=== PATIENT | female | born 1955 | race Caucasian/White ===

== ENCOUNTER 2024-08-08 10:48 | Inpatient (IN) | payer MEDICARE, OTHER, SELFPAY ==
[2024-08-08] VITALS (8 sets, daily range): BP systolic 125–166; BP diastolic 89–107; PULSE 75–86; RESP 17–20; TEMP 36.6–37.1; O2SAT 93–96; BMI 25.6; BMI 27.3
--- NOTE | 2024-08-08 | XR_ITS ---
Examinations: MRI Brain without intravenous contrast. MRA brain without intravenous contrast. MRA carotids without intravenous contrast 3-D vascular reconstructions Date and time of exam: August 08, 2024 1456 hours INDICATIONS: Stroke alert, onset dysarthria dizziness and ataxia today Technique: Multiple axial and sagittal images of the brain have been obtained MRA brain carotid images without contrast obtained, including 3-D postprocessing, vascular maximum intensity projection images Findings: [place] is not enlarged. The optic chiasm and infundibular stalk are not remarkable. Prepontine and interpeduncular cisterns are not enlarged. No localized enlargement of the medulla or melissa. Fourth ventricle and cerebellar tonsils normal in position. Subacute hemorrhage is not seen. Fourth ventricle is midline. Mass in the cerebellopontine angle region is not evident. 7th and 8th nerve complexes exhibits symmetry. Globes are symmetrical with no retro-orbital mass. Increased white matter signal mild Diffusion-weighted images demonstrate no focus of restricted diffusion Mass-effect upon the ventricular system is not identified. MRA carotid images degraded by patient motion. MRA brain images no large vessel occlusions Impression: Negative for acute hemorrhage mass effect or midline shift No acute infarct Mild chronic microvascular white matter change No cerebral large vessel arterial occlusions
--- NOTE | 2024-08-08 11:21 | EKG_ITS ---
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
--- NOTE | 2024-08-08 11:21 | XR_ITS ---
Examination: CT brain head without contrast. 2-D sagittal coronal reconstructions Date and time of exam:August 08, 2024 1124 hours INDICATIONS: Altered mental status today, focal neurologic deficit, slurred speech beginning 8:30 AM, stroke alert CTDI: vol (mGy):47.9 DLP: (mGycm):922 Technique: Multiple CT axial sections of the brain have been obtained, 5 mm slice thickness. Contrast has not been administered. 2-D sagittal, coronal reconstructions have been obtained Low dose protocols were performed. One or more of the following dose reduction techniques were used; automated exposure control, adjustment of the mA and/or KV according to patient size, use of iterative reconstruction technique. Findings: No significant ventricular enlargement. Intra-axial or extra-axial hemorrhage density is not seen. No mass effect or midline shift Basal cisterns are not remarkable. Fourth ventricle is midline. Cranial vault intact. Impression: Negative for acute hemorrhage, mass effect or midline shift
--- NOTE | 2024-08-08 11:21 | XR_ITS ---
Examination: CTA carotids with intravenous contrast CTA brain, head with intravenous contrast. 2-D sagittal, coronal reconstructions. 3-D reconstructions. Exam date and time: August 08, 2024 1134 hours INDICATIONS: Stroke alert, onset slurred speech beginning 8:30 AM this morning CTDI: vol (mGy) 20.7 DLP: (mGycm) 412 Technique: Multiple CTA axial brain, head carotid images post intravenous contrast injection 75 cc, Isovue-370. 2-D sagittal, coronal reconstructions. 3-D reconstructions, 3-D post processing including vascular maximum intensity projection images. Low dose protocols were performed. One or more of the following dose reduction techniques were used; automated exposure control, adjustment of the mA and/or KV according to patient size, use of iterative reconstruction technique. Findings: No significant common carotid carotid bifurcation or internal carotid artery stenoses Mildly dominant right vertebral artery no neck vertebral artery significant stenoses No cerebral large vessel arterial occlusions or thrombus IMPRESSION: No significant neck arterial stenoses No cerebral large vessel arterial occlusions or thrombus
[2024-08-08 11:50] LABS: Basophils # (Auto) 0.1 Thou/mm3 (0.0-0.2); Basophils % (Auto) 1 % (0-2.5); Eosinophils # (Auto) 0.2 Thou/mm3 (0.0-0.5); Eosinophils % (Auto) 2 % (0-10); Hemoglobin 14.7 g/dL (12.0-16.0); Immature Granulocytes % (Auto) 1 % (0-0); Immature Granulocytes Auto 0.12 Thou/mm3 (0.00-0.00); Lymphocytes # (Auto) 3.3 Thou/mm3 (1.0-4.8); Lymphocytes % (Auto) 27 % (10-50); Mean Corpuscular HGB Conc 33.4 g/dl (31.0-37.0); Mean Corpuscular Hemoglobin 29.9 pg (25.0-35.0); Mean Corpuscular Volume 90 fL (80-100); Monocytes # (Auto) 0.9 Thou/mm3 (0.0-0.8); Monocytes % (Auto) 8 % (0-12); Neutrophils # (Auto) 7.3 Thou/mm3 (1.8-7.7); Neutrophils % (Auto) 61 % (37-80); Nucleated Red Blood Cell % 0 /100 WBC (0); Platelet Count 725 Thou/mm3 (140-440); RDW Standard Deviation 46.4 fL (36.4-46.3); Red Blood Count 4.91 Miln/mm3 (4.00-5.20); White Blood Count 12.1 Thou/mm3 (3.6-11.0)
[2024-08-08 11:52] LABS: B-Type Natriuretic Peptide 24 pg/mL (0-100)
--- NOTE | 2024-08-08 11:55 | EDNOTE_ITS ---
Neuro Symptoms Deficit-RME/HPI General Chief Complaint: Dizziness Stated Complaint: Dizzy, slurred speech X 2 hours Time Seen by Provider: 08/08/24 11:14 Arrival date/time: 08/08/24 10:48 RME / HPI RME / HPI Narrative: DR. DENNEY MAIN ED EVALUATION: 68 year old female presents to the Emergency Department with complaints of dysarthria and dizziness onset at 0830 hrs. this morning and the speech disturbance resolved within 30-40 minutes and the family noted the blood pressure to be elevated with the patient was also somewhat anxious. Patient arrived to emergency department and a stroke alert was called. See MDM for further details. Notes the neurological symptoms had resolved soon after stroke alert was called. Daughter who is in the room states that she was acting little strange maybe for 3 hours after the onset of symptoms. Daughter seems to feel there is some association with stress or activity as the patient is moving to the area but was in the process of selecting a home. There is no fever vomiting diarrhea there is no injury or trauma. She is not any blood thinners. Related Data Allergies Allergy/AdvReac Type Severity Reaction Status Date / Time NKA* Allergy Uncoded 08/08/24 10:57 Review of Systems Review of Systems Systems Reviewed: All systems reviewed, normal except as documented Narrative Review of Systems: GEN: No fever, no chills, no weight loss EYES: No discharge, no visual changes, no pain HEENT: No ear pain, no congestion, no sore throat PULM: No shortness of breath, no cough, no congestion CV: No chest pain, no dyspnea on exertion, no palpitations GI: No nausea, no vomiting, no diarrhea, no pain, no constipation : No frequency, no urgency and no dysuria MUSC/SKEL: No joint pain, no back pain SKIN: No rash PSYCH: No hallucinations, no depression HEME/LYMPH: No easy bleeding or bruising tendencies NEURO: No weakness, no headache, + dysarthria (see HPI), + dizziness Past Medical History Past Medical History GENITOURINARY: Positive Renal Disease (L KIDNEY REMOVED) Family History FAMILY HISTORY: Positive Family Cancer (PT'S DAD PROSTATE CANCER) Surgical History SURGICAL: Positive of Shoulder Sx (R SHOULDER) and Hysterectomy (FULL) Social History SMOKING STATUS: Former smoker SUBSTANCE USE: does not use ALCOHOL: Never ED Exam Narrative Physical exam: Physical Exam: General: The vital signs were reviewed. The patient is non-toxic, in no apparent distress and appears healthy with a patent airway, no respiratory distress and has no apparent circulatory problems. Head & Scalp: Normocephalic, atraumatic. Face: Appears normal and is without lesions, deformity. Ears: Left external pinna appears normal. Right external pinna appears normal. Eyes: The sclera is anicteric. No obvious photophobia. The Left and Right Orbit/Lid/Conjunctiva appears normal without swelling, discoloration or injection. Nose: The nose is without deformity, discharge or tenderness; Throat: Appears normal. The mucous membranes are pink and moist without exudates, redness or mass seen. The tongue appears normal. Neck: The neck is supple and no apparent mass or adenopathy. Chest: The chest wall is normal in size and symmetry and has no chest wall tenderness or crepitus. The patient displays normal ventilator effort without retractions, accessory muscle use and has adequate air movement bilaterally with no wheezes and no rales. Cardiovascular: Regular rate and rhythm; No murmurs, rubs, or gallops; Gastrointestinal: The abdomen appears normal. No obvious hernias or mass. The abdomen is soft and benign, non-distended, with no pain, no guarding and no rebound tenderness. Bowel sounds are present and normal sounding. No CVA tenderness. Genitourinary: Back/Spine: Nontender normal inspection Extremities/Musculoskeletal/lymphatic: The bilateral upper and lower extremities are warm. There is no evidence of arterial insufficiency. There is no evidence of venous insufficiency/edema. The patient spontaneously moves bilateral upper and lower extremities with no pain and no limitation of movement. There is no apparent, injury or trauma. Skin: The skin is warm, dry and intact. No rashes. No petechia. No purpura. No abnormal bruising. The color is appropriate with no cyanosis. Mental status/Psychiatric: Mental status is appropriate for age. The patient has no apparent delusions, visual hallucinations, no apparent audible hallucinations. The patient has no apparent suicidal thoughts/ideation and no apparent homicidal thoughts/ideation. Neurological: The patient is awake, alert, interactive, cordial, cooperative and is oriented to name and situation. Cranial nerves II through XII are within normal limits there is no dysdiadochokinesis. There is no dysmetria. She stands gets off the gurney without any difficulty. Speech is perfectly clear at the time of my evaluation. The patient follows commands and answers historical question with no i mpairment. There is no visual disturbance apparent. The pupils are equal and reactive bilaterally with normal eye movements and no diplopia The bilateral upper and lower extremities have normal strength, normal range of motion and normal functioning. The gait, station and balance appear to be baseline with no acute change Course Quality Measures none Orders Category Date Time Status Bedside Blood Glucose NOW Care 08/08/24 11:21 Active Nail Professional NOW Care 08/08/24 11:21 Active Continuous Pulse Oximetry NOW Care 08/08/24 11:21 Completed EKG (ED ONLY) *Do not use* NOW Care 08/08/24 11:21 Completed Insert IV NOW Care 08/08/24 11:21 Active MRI Screening NOW Care 08/08/24 13:29 Active NIH Stroke Scale now Care 08/08/24 11:21 Active NPO NOW Care 08/08/24 11:21 Active Nurse Swallow Screen x1 Care 08/08/24 11:21 Active Consult to Neurology / Tele-Neurology Routine Cons 08/08/24 11:[address] angio stroke protocol Stat Exams 08/08/24 11:[address] stroke protocol Stat Exams 08/08/24 11:21 Completed EKG (ED Only) Stat Exams 08/08/24 11:21 Ordered B-Type Natriuretic Peptide Stat Lab 08/08/24 11:21 Completed CBC Stat Lab 08/08/24 11:21 Completed Comprehensive Metabolic Panel Stat Lab 08/08/24 11:21 Completed Drug Screen,Urine Stat Lab 08/08/24 11:59 Completed Magnesium Stat Lab 08/08/24 11:21 Completed Partial Thromboplastin Time Stat Lab 08/08/24 11:21 Completed Prothrombin Time with INR Stat Lab 08/08/24 11:21 Completed Troponin I Stat Lab 08/08/24 11:21 Completed UA, C/S IF [Urinalysis, C/S if Indicated] Stat Lab 08/08/24 11:59 Completed Aspirin [Ecotrin] Med 08/08/24 13:29 Discontinued 81 mg PO X1 ONE Clopidogrel [Plavix] Med 08/08/24 13:29 Discontinued 300 mg PO X1 ONE Ondansetron Inj [Zofran Inj] Med 08/08/24 11:21 Active 4 mg IV Q4HR PRN Vital Signs Vital signs: Vital Signs Temperature 98.8 F 08/08/24 11:15 Pulse Rate 77 08/08/24 11:15 Respiratory Rate 19 08/08/24 11:15 Blood Pressure 162/97 H 08/08/24 11:15 Pulse Oximetry (%) 95 08/08/24 11:15 Oxygen Delivery Method Room Air 08/08/24 11:15 Neuro Symptoms / Deficit MDM Narrative MDM Narrative:: Patient had a stroke alert called due to acute onset of speech disturbance which resolved within 45 minutes of onset. And most likely is a TIA. Teleneurologist saw the patient reviewed the scan and called and recommended started the patient on Plavix 300 mg and aspirin 81 mg. Also an MRI will be ordered after consulting with Dr. Watters who will be consulting and hospitalist was called and they will be admitting as of 1320 hrs. per medical workup otherwise is negative drug screen came back negative urinalysis is unremarkable. Chemistries are unremarkable troponin is negative liver enzymes are negative glucose was 122 BUN was 26 slightly above the normal range. Creatinine is 1.0 rest electrolytes are normal PT/INR within normal limits CBC white count is 12.1 hemoglobin is 14.7 Because a stroke alert was called there will be a critical care note. Fortunately she is doing well be admitted for workup of TIAs. Discussion with the teleneurologist earlier revealed this patient's not a tPA candidate as the symptoms have nearly resolved. Most likely a TIA as mentioned above I consulted Dr. Watters she and then the hospitalist will be admitting. Plan was to start the patient on aspirin and Plavix. Note the CTA c srinath back negative. On reevaluation multiple times patient was alert awake feeling good was able to stand and walk and be admitted for TIA workup. -------- Shara Desai, am scribing for and in the presence of Dr. Denney. Patient data External records reviewed:: None (no previous visits) Clinical information provided by:: patient and family (daughter) Social determinants that could affect healthcare access:: none Patient has the following chronic illnesses:: Renal disease, left nephrectomy How is presenting disease/condition affected by chronic disease/condition?: uneffected by Evaluation data The following diagnostics were reviewed and interpreted by me:: lab results, radiology exam(s) and EKG tracing(s) (EKG#1: EKG at 1148 hours. Interpreted by me: sinus rhythm, rate 75, no STEMI) Lab and/or radiology exams considered but not ordered:: none Interpretation Summary: See above under MDM narrative. RADIOLOGY Procedure(s): CT stroke protocol Accession Number(s): [id number] cc: Niurka (MARIBEL),Alexandr LÓPEZ; Israel Orozco MD~ Examination: CT brain head without contrast. 2-D sagittal coronal reconstructions Date and time of exam:August 08, 2024 1124 hours INDICATIONS: Altered mental status today, focal neurologic deficit, slurred speech beginning 8:30 AM, stroke alert CTDI: vol (mGy):47.9 DLP: (mGycm):922 Technique: Multiple CT axial sections of the brain have been obtained, 5 mm slice thickness. Contrast has not been administered. 2-D sagittal, coronal reconstructions have been obtained Low dose protocols were performed. One or more of the following dose reduction techniques were used; automated exposure control, adjustment of the mA and/or KV according to patient size, use of iterative reconstruction technique. Findings: No significant ventricular enlargement. Intra-axial or extra-axial hemorrhage density is not seen. No mass effect or midline shift Basal cisterns are not remarkable. Fourth ventricle is midline. Cranial vault intact. Impression: Negative for acute hemorrhage, mass effect or midline shift Dictated By: Israel Orozco MD Procedure(s): CT angio stroke protocol Accession Number(s): [id number] cc: Niurka (MARIBEL),Alexandr LÓPEZ; Israel Orozco MD; NO PRIMARY/FAMILY,PHYSICIAN~ Examination: CTA carotids with intravenous contrast CTA brain, head with intravenous contrast. 2-D sagittal, coronal reconstructions. 3-D reconstructions. Exam date and time: August 08, 2024 1134 hours INDICATIONS: Stroke alert, onset slurred speech beginning 8:30 AM this morning CTDI: vol (mGy) 20.7 DLP: (mGycm) 412 Technique: Multiple CTA axial brain, head carotid images post intravenous contrast injection 75 cc, Isovue-370. 2-D sagittal, coronal reconstructions. 3-D reconstructions, 3-D post processing including vascular maximum intensity projection images. Low dose protocols were performed. One or more of the following dose reduction techniques were used; automated exposure control, adjustment of the mA and/or KV according to patient size, use of iterative reconstruction technique. Findings: No significant common carotid carotid bifurcation or internal carotid artery stenoses Mildly dominant right vertebral artery no neck vertebral artery significant stenoses No cerebral large vessel arterial occlusions or thrombus IMPRESSION: No significant neck arterial stenoses No cerebral large vessel arterial occlusions or thrombus Dictated By: Israel Orozco MD Medications / Prescriptions Medications or Prescriptions considered but not ordered:: none Medication administrations:: Medication Administration History Acetaminophen (Acetaminophen 325 Mg Tablet) 650 mg PO Q6H PRN PRN Reason: Fever >100.4 OR PAIN 1-3 Stop: 09/07/24 13:56 Aspirin (Aspirin Ec 81 Mg Tabec) 81 mg PO QDAY [facility] Stop: 09/08/24 08:59 Atorvastatin Calcium (Atorvastatin Calcium 20 Mg Tablet) 40 mg PO HS [facility] Stop: 09/07/24 20:59 Escitalopram Oxalate (Escitalopram Oxalate 10 Mg Tablet) 5 mg PO QDAY [facility] Stop: 09/08/24 08:59 Heparin Sodium (Porcine) (Heparin Sod Inj 5000 Unit/Ml Vial) 5,000 unit SC Q12HR [facility] Stop: 08/22/24 20:59 Ondansetron HCl (Ondansetron Inj 2 Mg/Ml Inj 2 Ml) 4 mg IV Q4HR PRN PRN Reason: NAUSEA OR VOMITING Stop: 09/07/24 11:20 Discontinued Medications Aspirin (Aspirin Ec 81 Mg Tabec) 81 mg PO X1 ONE Stop: 08/08/24 13:30 Last Admin: 08/08/24 13:52 Dose: 81 mg Documented By: GM Clopidogrel Bisulfate (Clopidogrel Bisulfate 75 Mg Tablet) 300 mg PO X1 ONE Stop: 08/08/24 13:30 Last Admin: 08/08/24 13:52 Dose: 300 mg Documented By: GM Lorazepam (Lorazepam 2 Mg/Ml Vial) 2 mg IV X1 ONE Stop: 08/08/24 14:08 Last Admin: 08/08/24 14:37 Dose: 2 mg Documented By: GM see above Consultations Consultation(s) initiated? (list below): Yes Consultation #1 (Physician, Specialty, Details): Discussed test HPI, PMHx, lab, radiology results and/or management with neurologist Dr. Watters. Will consult an admission to the hospitalist. Time: 13:25 Consultation #2 (Physician, Specialty, Details): Discussed test HPI, PMHx, lab, radiology results and/or management with hospitalist. Will admit for further evaluation and management. Accepts patient for admission. Time: 13:30 Diagnosis Neuro Differential Diagnosis: delirium, subarachnoid hemorrhage, cerebrovascular accident and transient cerebral ischemia Most likely diagnosis given after review of the tests above:: Dysarthria TIA Hypertension Admission Indicated Admission indicated?: indicated Admission Request Was there a request for admission?: Yes Admission Attestation Admission request attestation: Discussed case with [] from Hospitalist service regarding admission. Discussed patients ED course, exam findings, labs, and radiology results. The Hospitalist [agrees,declines] to accept the patient for admission. Disposition Plan Disposition Plan: Admit Critical Care Time Critical Care Time Critical Care Time: Yes Total Critical Care Time (min.): 40 Attestation: The high probability of sudden, clinically significant deterioration in the patient's condition required the highest level of my preparedness to intervene urgently. The services I provided to this patient were to treat and/or prevent clinically significant deterioration. Services included the following: chart data review, reviewing nursing notes and/or old charts, documentation time, quantitative consultant collaboration regarding findings and treatment options, medication orders and management, direct patient care, vital sign assessments and ordering, interpreting and reviewing diagnostic studies and lab tests. Aggregate critical care time includes only time during which I was engaged in work directly related to the patient's care, as described above, whether at bedside or elsewhere in the Emergency Department. It did not include time spent performing other reported procedures or the services of residents, students, nurses or physician assistants. Discharge Plan Plan Patient Disposition: Admit Acute Care w/in Hospital Disposition Comment: Hospitalist admit Dr Watters to consult Problem List Clinical Impression: Dysarthria, TIA (transient ischemic attack), Hypertension
[2024-08-08 11:56] LABS: Alanine Aminotransferase 24 U/L (10-49); Albumin, Serum 4.6 gm/dL (3.4-4.8); Albumin/Globulin Ratio 1.6 (1.2-2.2); Alkaline Phosphatase 87 U/L (46-116); Anion Gap 7 (7-16); Aspartate Amino Transferase 31 U/L (0-34); BUN/Creatinine Ratio 26 Ratio (12-20); Bilirubin,Total 0.3 mg/dL (0.3-1.2); Blood Urea Nitrogen 26 mg/dL (9-23); Calcium 9.9 mg/dL (8.3-10.6); Calcium (Corrected) 9.9 mg/dL (8.5-10.1); Chloride 104 mMol/L (98-107); Estimated Creatinine Clearance 47.1 mL/min (>60); Globulin 2.8 gm/dL (2.3-3.5); Glucose 122 mg/dL (74-106); Magnesium 2.2 mg/dL (1.6-2.6); Osmolality,Calculated 277 (275-295); Potassium 4.6 mMol/L (3.4-5.1); Sodium 136 mMol/L (136-145); Total Protein 7.4 gm/dL (5.7-8.2); Troponin I < 0.002 ng/mL (0.0-0.045); eGFR > 60 See Note
[2024-08-08 12:01] LABS: INR 1.1 (0.9-1.3); Partial Thromboplastin Time 30.1 Seconds (22.0-36.0); Prothrombin Time 11.6 Seconds (9.0-12.2)
[2024-08-08 12:04] LABS: Collection Type, Urine Clean Catch; Squamous Epithelial Cell,Urine 0 /hpf (0-5)
--- NOTE | 2024-08-08 12:04 | PD.TNEURO ---
Tele Neuro Consultation Consultation Date 08/08/24 Most Recent Vital Signs Last Vital Signs Temp 98.0 F 08/08/24 11:18 Pulse 75 08/08/24 11:18 Resp 18 08/08/24 11:18 BP 162/97 H 08/08/24 11:18 Pulse Ox 95 08/08/24 11:18 O2 Del Method Room Air 08/08/24 11:18 Laboratory-Coagulation Panel PT 11.6 Seconds (9.0-12.2) 08/08/24 11:21 INR 1.1 (0.9-1.3) 08/08/24 11:21 APTT 30.1 Seconds (22.0-36.0) 08/08/24 11:21 Consultation Narrative [facility] Tele[facility]rology [facility] Patient Name:???era stoddard Date of :???1955 Identification Number:??? Date of Service:???08/08/2024 11:21:10 Diagnosis:?G45.9 - Transient cerebral ischemic attack, unspecified Impression: ?Mrs. Britt had signs and symptoms of TIA with dysarthria and dizziness. she has vascular risk factors of HTN and hyperglycemia and former smoker. I recommend dual antiplatelets (aspirin 81mg and plavix load 300mg), MRI brain, CTA neck, LDL goal <70 with atorvastatin 40mg, A1C goal <7, cardiac monitoring for AF evaluation. Since she had a recent UTI, I recommend repeat UA. Our recommendations are outlined below. Recommendations: ? Stroke/Telemetry Floor ? Neuro Checks ? Bedside Swallow Eval ? DVT Prophylaxis ? IV Fluids, Normal Saline ? Head of Bed 30 Degrees ? Euglycemia and Avoid Hyperthermia (PRN Acetaminophen) Sign Out: ? Discussed with Emergency Department Provider Advanced Imaging: Advanced imaging has been ordered. Results pending. Metrics: Last Known Well: 08/08/2024 08:30:00 Dispatch Time: 08/08/2024 11:21:10 Arrival Time: 08/08/2024 10:51:00 Initial Response Time: 08/08/2024 11:25:20Symptoms: dizziness and slurred speech. Initial patient interaction: 08/08/2024 11:28:00 NIHSS Assessment Completed: 08/08/2024 11:35:00Patient is not a candidate for Thrombolytic. Thrombolytic Medical Decision: 08/08/2024 11:35:00Patient was not deemed candidate for Thrombolytic because of following reasons: Resolved symptoms . I personally Reviewed the CT Head and it Showed no ICH Primary Provider Notified of Diagnostic Impression and Management Plan on: 08/08/2024 11:48:16 History of Present Illness:Patient is a 68 year old Female. Patient was brought by private transportation with symptoms of dizziness and slurred speech. 68 year old woman with sudden onset of dizziness and family reported dysarthria. The patient now feels back to normal without any complaints. She has recently had a UTI and wonders if this could be the cause. She does not have a history of stroke. Past Medical History: ?Hypertension ?There is no history of Stroke Medications: No Anticoagulant use? No Antiplatelet use Reviewed EMR for current medications Allergies:? Reviewed Social History: Smoking: Former Family History: There is no family history of premature cerebrovascular disease pertinent to this consultation ROS : 14 Points Review of Systems was performed and was negative except mentioned in HPI. Past Surgical History: There Is No Surgical History Contributory To Today?s Visit There Is Surgical History of:? CCY Examination: BP(162/97),?Pulse(79),?Blood Glucose(173) 1A: Level of Consciousness - Alert; keenly responsive?+ 0 1B: Ask Month and Age - Both Questions Right?+ 0 1C: Blink Eyes & Squeeze Hands - Performs Both Tasks?+ 0 2: Test Horizontal Extraocular Movements - Normal?+ 0 3: Test Visual Thakur - No Visual Loss?+ 0 4: Test Facial Palsy (Use Grimace if Obtunded) - Normal symmetry?+ 0 5A: Test Left Arm Motor Drift - No Drift for 10 Seconds?+ 0 5B: Test Right Arm Motor Drift - No Drift for 10 Seconds?+ 0 6A: Test Left Leg Motor Drift - No Drift for 5 Seconds?+ 0 6B: Test Right Leg Motor Drift - No Drift for 5 Seconds?+ 0 7: Test Limb Ataxia (FNF/Heel-Hudson) - No Ataxia?+ 0 8: Test Sensation - Normal; No sensory loss?+ 0 9: Test Language/Aphasia - Normal; No aphasia?+ 0 10: Test Dysarthria - Normal?+ 0 11: Test Extinction/Inattention - No abnormality?+ 0 NIHSS Score:?0 Pre-Morbid Modified Ron Scale:0 Points = No symptoms at all Spoke with :?Dr This consult was conducted in real time using interactive audio and video technology. Patient was informed of the technology being used for this visit and agreed to proceed. Patient located in hospital and provider located at home/office setting. Patient is being evaluated for possible acute neurologic impairment and high probability of imminent or life-threatening deterioration. I spent total of 35 minutes providing care to this patient, including time for face to face visit via telemedicine, review of medical records, imaging studies and discussion of findings with providers, the patient and/or family. Dr Adrian Coronel [facility] For Inpatient follow-up with [facility] physician please call [facility] at . As we are not an outpatient service for any post hospital discharge needs please contact the hospital for assistance. If you have any questions for the [facility] physicians or need to reconsult for clinical or diagnostic changes please contact us via [facility] at .
[2024-08-08 12:30] LABS: Bilirubin,Urine Negative (Negative); Blood,Urine Negative (Negative); Clarity,Urine Clear (Clear/Hazy); Color,Urine Colorless (Lt Yel-Yel); Culture Indicated,Urine Not Indicated; Glucose, Urine Negative (Negative); Ketones,Urine Negative (Negative); Leukocyte Esterase,Urine Negative (Negative); Nitrite,Urine Negative (Negative); PH,Urine 5.5 (5.0-7.0); Protein,Urine Negative (Neg - Trace); RBC,Urine 1 /hpf (0-3); Specific Gravity,Urine 1.015 (1.001-1.035); Urobilinogen,Urine Negative mg/dL (0.0-1.0); WBC,Urine 3 /hpf (0-5)
[2024-08-08 12:36] LABS: Amphetamine/Methamp Scrn,U Negative (Negative); Barbiturate Screen,Urine Negative (Negative); Benzodiazepines Screen,Urine Negative (Negative); Benzoylecgonine Screen, Ur Negative (Negative); Fentanyl Screen,Urine Negative (Negative); Opiate Screen,Urine Negative (Negative); THC Screen,Urine Negative (Negative)
--- NOTE | 2024-08-08 13:50 | PC.NURSE ---
DR. CASTILLO AT BEDSIDE AND MADE AWARE OF PT'S BP OF 166/107; PER DR. CASTILLO, NO NEW ORDERS AT THIS TIME. PERMISSIVE HYPERTENSION OK FOR NOW.
[2024-08-08] MEDS: ASPIRIN EC 81 MG TABEC PO (13:52)
[2024-08-08] MEDS: CLOPIDOGREL BISULFATE 75 MG TABLET 300 MG PO (13:52)
--- NOTE | 2024-08-08 13:59 | ECHO_ITS ---
Transthoracic Echo Report Ht (in): 62 Wt (lb): 140 Exam Location: Echo Lab Status: Emergency Metal Fabricator: ELIOT Pierre^^^^ Indications: Procedure Performed: BP: 118 / 76 HR: 77 Technical Quality: Fair MEASUREMENTS (Male / Female) Normal Values 2D ECHO LV Diastolic Diameter PLAX 2.0 cm 4.2 - 5.9 / 3.9 - 5.3 cm LV Systolic Diameter PLAX 1.3 cm IVS Diastolic Thickness 1.3 cm 0.6 - 1.0 / 0.6 - 0.9 cm LVPW Diastolic Thickness 1.3 cm 0.6 - 1.0 / 0.6 - 0.9 cm LV Relative Wall Thickness 1.3 LVOT Diameter 1.7 cm Aortic Root Diameter 2.7 cm LA Systolic Diameter LX 2.9 cm 3.0 - 4.0 / 2.7 - 3.8 cm LV Ejection Fraction MOD BP 66.3 % >= 55 % LV Cardiac Index MOD BP 1580.6 cm?/min?m? LV Ejection Fraction MOD 4C 62.9 % LV Cardiac Index MOD 4C 1608.1 cm?/min?m? LV Ejection Fraction 4C AL 64.8 % LV Cardiac Index 4C AL 1783.2 cm?/min?m? LV Ejection Fraction MOD 2C 68.0 % LV Cardiac Index MOD 2C 1411.1 cm?/min?m? LV Ejection Fraction 2C AL 69.8 % LV Cardiac Index 2C AL 1495.7 cm?/min?m? LA Volume Index 13.3 cm?/m? 16 - 28 cm?/m? Ascending Aorta Diameter 2.7 cm DOPPLER AV Peak Velocity 126.0 cm/s AV Peak Gradient 6.4 mmHg AV Mean Gradient 4.0 mmHg AV Velocity Time Integral 23.0 cm AI Peak Velocity 219.0 cm/s AI Peak Gradient 19.2 mmHg AI Pressure Half Time 389.0 ms LVOT Peak Velocity 108.0 cm/s LVOT Peak Gradient 4.7 mmHg LVOT Velocity Time Integral 19.3 cm LVOT Cardiac Index 2007.0 cm?/min?m? AV Area Cont Eq vti 1.9 cm? AV Area Cont Eq pk 1.9 cm? MV Area PHT 4.0 cm? Mitral E Point Velocity 75.6 cm/s Mitral A Point Velocity 118.0 cm/s Mitral E to A Ratio 0.6 LV E' Lateral Velocity 9.3 cm/s Mitral E to LV E' Lateral Ratio 8.1 LV E' Septal Velocity 6.3 cm/s Mitral E to LV E' Septal Ratio 12.1 TR Peak Velocity 258.8 cm/s TR Peak Gradient 26.8 mmHg PV Peak Velocity 116.0 cm/s PV Peak Gradient 5.4 mmHg RVOT Peak Velocity 82.8 cm/s FINDINGS Left Ventricle Normal left ventricular size, systolic function with no obvious regional wall motion abnormalities. There is moderate concentric left ventricular hypertrophy. There is grade I diastolic dysfunction of the left ventricle (impaired relaxation pattern). The left ventricular ejection fraction is normal, estimated at 65-70%. Right Ventricle The right ventricle is normal in size and systolic function. Estimated right ventricular systolic pressure is mildly elevated, 45 mmHg. Left Atrium The left atrium is normal by two-dimensional, color flow and Doppler imaging with no structural abnormalities, no thrombus formation present. Right Atrium The right atrium is normal by two-dimensional imaging, color flow and Doppler imaging with no structural abnormalities, no thrombus formation present. Atrial Septum The interatrial septum appears normal with no evidence of a shunt. Aorta The aorta is normal by two-dimensional, color flow and Doppler interrogation. Mitral Valve Mild mitral regurgitation. Mild mitral annular calcification. Aortic Valve Mild aortic valve regurgitation. Tricuspid Valve There is mild to moderate tricuspid valve regurgitation. Pulmonic Valve Trivial pulmonic valve regurgitation. Vessels The pulmonary artery appears normal. The inferior vena cava pulmonary and hepatic veins appear normal. Pericardium There is a small pericardial effusion. CONCLUSIONS Indication: Stroke r/o vs TIA Normal LV size and function. LVEF 65 to 70%. Diastolic dysfunction stage I. Mild LVH Normal RV size and function. Mildly elevated RVSP at 40-45 mmHg. Mild to moderate TR, trace to mild MR. Mild MAC. No bubble study was performed. Elijah Jensen (Electronically Signed) Final Date: 08 August 2024 19:36
--- NOTE | 2024-08-08 14:09 | PD.RESHP ---
Documentation for date of: 08/08/24 HPI History of Present Illness Chief complaint: slurred speech History of present illness: Patient is a 68 year old female with PMH of depression, donated 1 kidney, who presents to the ER for slurred speech. Symptoms started 8 am. She had slurred, slowed speech and motor movement, and goofiness for 45 minutes. Her adult children were concerned so called the ambulance. Symptoms have since resolved and patient is back to baseline mentation. Patient remembers the episode but did not think much of it. No headache, nausea, chest pain, stomach pain, other weakness. She was recently treated and completed a course of antibiotics for a UTI. Patient is from out of town but is moving in to be closer to her adult children nearby. In the ER, stroke alert was called. NIHHS score was 0. She was given aspirin and plavix. Vitals were significant for hypertension in the 160s. Upon evaluation, patient is awake, alert, no focal neurologic deficits appreciated. Labs significant for elevated platelets at 725, otherwise CBC and chem panel generally unremarkable. Head CT and CTA were unremarkable. PMH: depression PSH: donated 1 kidney to spouse 23 years ago (), ashajyothi gesharita, cholecystectomy, [place] teeth removal, tonsilectomy, right carpal tunnel surgery, bilateral shoulder surgery, hysterectomy SH: retired, used to work in food services. Denies smoking, drinking, alcohol, illicit drugs FH: mom had DM2, HLD, HTN; father had prostate cancer with radiation and leukemia, heart attack, stroke Meds: nightly ambien, escitalopram, and assortment of vitamins and supplements that family will bring in Review of Systems Review of Systems Systems Reviewed: All systems reviewed, normal except as documented Exam Vital Signs Temp Pulse Resp BP Pulse Ox O2 Del Method 98.2 F 75 20 166/107 H 96 Room Air 08/08/24 13:46 08/08/24 13:46 08/08/24 13:46 08/08/24 13:46 08/08/24 13:46 08/08/24 13:46 Narrative Exam Constitutional: NAD. AAOx3. Pleasant, well-appearing. HEENT: NCAT. Vision grossly intact. Mucous membranes moist. Respiratory: CTAB bilaterally. Cardiac: RRR. Abdomen: Soft, non-distended, non-tender. No guarding, no rebound. MSK: No B/L LE edema. Strength b/l 5/5. Manicured nailes. Skin: Warm, dry, intact. No obvious lesions. Neuro: Motor and sensation grossly intact. CN II-XII grossly intact. Psychiatric: Appropriate mood and affect. Results: Labs 08/09/24 04:55 08/09/24 04:55 Labs: Short CBC 08/08/24 Range/Units 11:21 WBC 12.1 H (3.6-11.0) Thou/mm3 Hgb 14.7 (12.0-16.0) g/dL Hct 44.0 (36.0-46.0) % Plt Count 725 H (140-440) Thou/mm3 BMP 08/08/24 11:21 Sodium 136 Potassium 4.6 Chloride 104 Carbon Dioxide 25.0 BUN 26 H Creatinine 1.0 Glucose 122 H Calcium 9.9 Cardiac Enzymes 08/08/24 Range/Units 11:21 Troponin I < 0.002 (0.0-0.045) ng/mL Liver Function 08/08/24 Range/Units 11:21 Total Bilirubin 0.3 (0.3-1.2) mg/dL AST 31 (0-34) U/L ALT 24 (10-49) U/L Alkaline Phosphatase 87 (46-116) U/L Albumin 4.6 (3.4-4.8) gm/dL Urine 08/08/24 Range/Units 11:59 Urine Color Colorless A (Lt Yel-Yel) Urine Clarity Clear (Clear/Hazy) Urine pH 5.5 (5.0-7.0) Ur Specific [place] 1.015 (1.001-1.035) Urine Protein Negative (Neg - Trace) Urine Glucose (UA) Negative (Negative) Quality Measures Quality Measures none Advance care planning discussed with:: patient Medications Home Medications and Allergies Home Medications ?Medication ?Instructions ?Recorded ?Confirmed ?Type albuterol sulfate 90 mcg/actuation 2 puff inhalation Q4H PRN 08/09/24 08/09/24 History aerosol inhaler shortness of breath or wheezing escitalopram oxalate 5 mg tablet 5 mg PO QDAY 08/09/24 08/09/24 History (Lexapro) zolpidem 10 mg tablet 10 mg PO HS 08/09/24 08/09/24 History Allergies Allergy/AdvReac Type Severity Reaction Status Date / Time melatonin AdvReac Intermediate Anxiety Verified 08/09/24 01:28 morphine AdvReac Intermediate Anxiety Verified 08/09/24 01:28 Visit Medications Acetaminophen (Acetaminophen 325 Mg Tablet) 650 mg PO Q6H PRN PRN Reason: Fever >100.4 OR PAIN 1-3 Stop: 09/07/24 13:56 Aspirin (Aspirin Ec 81 Mg Tabec) 81 mg PO QDAY ALTON Stop: 09/08/24 08:59 Atorvastatin Calcium (Atorvastatin Calcium 20 Mg Tablet) 40 mg PO HS ALTON Stop: 09/07/24 20:59 Heparin Sodium (Porcine) (Heparin Sod Inj 5000 Unit/Ml Vial) 5,000 unit SC Q12HR ALTON Stop: 08/22/24 20:59 Ondansetron HCl (Ondansetron Inj 2 Mg/Ml Inj 2 Ml) 4 mg IV Q4HR PRN PRN Reason: NAUSEA OR VOMITING Stop: 09/07/24 11:20 Discontinued Medications Aspirin (Aspirin Ec 81 Mg Tabec) 81 mg PO X1 ONE Stop: 08/08/24 13:30 Last Admin: 08/08/24 13:52 Dose: 81 mg Clopidogrel Bisulfate (Clopidogrel Bisulfate 75 Mg Tablet) 300 mg PO X1 ONE Stop: 08/08/24 13:30 Last Admin: 08/08/24 13:52 Dose: 300 mg Lorazepam (Lorazepam 2 Mg/Ml Vial) 2 mg IV X1 ONE Stop: 08/08/24 14:08 Assessment & Plan Plan Patient is a 68 year old female with PMH of depression, donated 1 kidney, who presents to the ER for slurred speech and admitted for acute stroke rule out. #Dysarthria, resolved #Stroke rule out Differential includes TIA, acute stroke, focal seizure Slurred speech and dysarthria this morning, resolved. NIHHS Score 0. No focal neurologic deficits. CT head and CTA head/neck unremarkable. Plan: - MRI - Echo - Neurology consult - Asa - Statin - Permissive HTN 24 hours - HbA1c, TSH, lipid panel risk stratification - PT, [employer] #History of depression Continue home ambien and escitalopram Health Maintenance Disposition: Admit for stroke rule out Diet and fluids: cardiac DVT prophylaxis: heparin bid GI prophylaxis: none needed CODE STATUS: FULL I have reviewed and discussed the patient's care with my attending, Dr. Sabrina Patton MD PGY-3 Attending Provider Attestation/Addendum I reviewed labs, imaging, EKG, home medications and prior available records. Face to face evaluation was performed by me. I have personally examined the patient and discussed assessment and plan with the IM team. I reviewed the resident note and agree with the plan with exceptions as below. CVA symptoms Slowed speech Confusion Vertigo Uncontrolled hypertension Leukocytosis Thrombocythemia Symptoms are likely due to TIA. Possibly due to elevated platelet level CT head is negative for acute changes Every 4 hour neurochecks Continue aspirin Follow-up brain MRI Allow permissive hypertension Trend WBC Monitor platelet level
[2024-08-08] MEDS: LORazepam 2 MG/ML VIAL IV (14:37)
--- NOTE | 2024-08-08 17:57 | PC.NURSE ---
PT RECEIVED DINNER TRAY AT THIS TIME.
[2024-08-08] MEDS: ATORVASTATIN CALCIUM 20 MG TABLET 40 MG PO (21:12)
[2024-08-08] MEDS: HEPARIN SOD INJ 5000 UNIT/ML VIAL SC (21:12)
--- NOTE | 2024-08-08 21:37 | VVPN_ITS ---
Telemedicine visit statement This visit was conducted with the use of phone was obtained on 08/08/24 at 2137. Documentation for date of: 08/08/24 Subjective Subjective Interval history: Patient is in telemetry. No new symptoms or recurrent symptoms reported after admission. Virtual exam Vital Signs Temp Pulse Resp BP Pulse Ox O2 Del Method 97.8 F 86 18 125/96 H 93 L Room Air 08/08/24 20:00 08/08/24 20:00 08/08/24 20:00 08/08/24 20:00 08/08/24 20:00 08/08/24 20:00 Objective Labs 08/09/24 04:55 08/09/24 04:55 Labs: Laboratory Results - last 24 hr 08/08/24 08/08/24 11:21 11:59 WBC 12.1 H RBC 4.91 Hgb 14.7 Hct 44.0 MCV 90 MCH 29.9 MCHC 33.4 RDW Std Deviation 46.4 H Plt Count 725 H Neut % (Auto) 61 Lymph % (Auto) 27 Gove % (Auto) 8 Eos % (Auto) 2 Baso % (Auto) 1 Neut # (Auto) 7.3 Lymph # (Auto) 3.3 Gove # (Auto) 0.9 H Eos # (Auto) 0.2 Baso # (Auto) 0.1 Immature Gran # (Auto) 0.12 H Absolute Nucleated RBC 0.00 Immature Gran % 1 H Nucleated RBC % 0 PT 11.6 INR 1.1 APTT 30.1 Sodium 136 Potassium 4.6 Chloride 104 Carbon Dioxide 25.0 Anion Gap 7 BUN 26 H Creatinine 1.0 Estim Creat Clear Calc 47.1 L eGFR > 60 BUN/Creatinine Ratio 26 H Glucose 122 H Calculated Osmolality 277 Calcium 9.9 Corrected Calcium 9.9 Magnesium 2.2 Total Bilirubin 0.3 AST 31 ALT 24 Alkaline Phosphatase 87 Troponin I < 0.002 B-Natriuretic Peptide 24 Total Protein 7.4 Albumin 4.6 Globulin 2.8 Albumin/Globulin Ratio 1.6 Ur Collection Type Clean Catch Urine Color Colorless A Urine Clarity Clear Urine pH 5.5 Ur Specific [place] 1.015 Urine Protein Negative Urine Glucose (UA) Negative Urine Ketones Negative Urine Blood Negative Urine Nitrite Negative Urine Bilirubin Negative Urine Urobilinogen (Auto) Negative Ur Leukocyte Esterase Negative Urine RBC 1 Urine WBC 3 Ur Squamous Epith Cells 0 Urine Bacteria None Ur Culture Indicated? Not Indicated Urine Opiates Screen Negative Urine Fentanyl Screen Negative Ur Barbiturates Screen Negative U Amphetamin/Meth Scrn Negative U Benzodiazepines Scrn Negative U Cocaine Metab Screen Negative U Marijuana (THC) Screen Negative Assessment & Plan Problem List (1) TIA (transient ischemic attack): Status: Acute Assessment and plan: Reassurance given to the patient regarding the negative MRI brain for acute stroke and echocardiogram. Continue with aspirin and statin (2) Dysarthria: Status: Resolved
[2024-08-09] VITALS: BP 106/63; PULSE 66; PULSE 67; RESP 17; TEMP 36.1; O2SAT 95
[2024-08-09 04:00] VITALS: BP 117/73; PULSE 62; PULSE 63; RESP 15; TEMP 36.8; O2SAT 96
[2024-08-09 05:51] LABS: Basophils # (Auto) 0.2 Thou/mm3 (0.0-0.2); Basophils % (Auto) 1 % (0-2.5); Eosinophils # (Auto) 0.5 Thou/mm3 (0.0-0.5); Eosinophils % (Auto) 4 % (0-10); Hematocrit 44.5 % (36.0-46.0); Hemoglobin 14.9 g/dL (12.0-16.0); Immature Granulocytes % (Auto) 1 % (0-0); Immature Granulocytes Auto 0.07 Thou/mm3 (0.00-0.00); Lymphocytes # (Auto) 3.7 Thou/mm3 (1.0-4.8); Lymphocytes % (Auto) 32 % (10-50); Mean Corpuscular HGB Conc 33.5 g/dl (31.0-37.0); Mean Corpuscular Hemoglobin 29.6 pg (25.0-35.0); Mean Corpuscular Volume 89 fL (80-100); Monocytes # (Auto) 1.1 Thou/mm3 (0.0-0.8); Monocytes % (Auto) 10 % (0-12); Neutrophils # (Auto) 6.2 Thou/mm3 (1.8-7.7); Neutrophils % (Auto) 53 % (37-80); Nucleated Red Blood Cell % 0 /100 WBC (0); Platelet Count 706 Thou/mm3 (140-440); RDW Standard Deviation 45.6 fL (36.4-46.3); Red Blood Count 5.03 Miln/mm3 (4.00-5.20); White Blood Count 11.7 Thou/mm3 (3.6-11.0)
[2024-08-09 06:14] LABS: Glucose Estimated Average 123 mg/dL (80-131); Hemoglobin A1C 5.9 % Hgb (4.8-6.0)
[2024-08-09 06:16] LABS: Alanine Aminotransferase 20 U/L (10-49); Albumin, Serum 4.4 gm/dL (3.4-4.8); Albumin/Globulin Ratio 1.7 (1.2-2.2); Alkaline Phosphatase 86 U/L (46-116); Anion Gap 11 (7-16); Aspartate Amino Transferase 14 U/L (0-34); BUN/Creatinine Ratio 22 Ratio (12-20); Bilirubin,Total 0.4 mg/dL (0.3-1.2); Blood Urea Nitrogen 24 mg/dL (9-23); Carbon Dioxide 24.9 mMol/L (20.0-31.0); Cardiac Risk Estimate 6.6 RATIO (3.7-5.6); Chloride 104 mMol/L (98-107); Cholesterol 210 mg/dL (132-200); Creatinine (Component) 1.1 mg/dL (0.6-1.3); Estimated Creatinine Clearance 44.1 mL/min (>60); Globulin 2.6 gm/dL (2.3-3.5); Glucose 116 mg/dL (74-106); HDL Cholesterol 32 mg/dL (40-60); LDL Cholesterol,Calculated 112 mg/dL (0-130); Magnesium 2.2 mg/dL (1.6-2.6); Osmolality,Calculated 284 (275-295); Potassium 4.3 mMol/L (3.4-5.1); Sodium 140 mMol/L (136-145); Thyroid Stimulating Hormone 1.88 uIU/mL (0.55-4.78); Triglycerides 328 mg/dL (30-150); eGFR 55 See Note
[2024-08-09 08:00] VITALS: BP 151/88; PULSE 75; PULSE 78; RESP 18; TEMP 37.2; O2SAT 96
[2024-08-09] MEDS: ESCITALOPRAM OXALATE 10 MG TABLET 5 MG PO (08:27)
[2024-08-09] MEDS: ASPIRIN EC 81 MG TABEC PO (08:27)
[2024-08-09] MEDS: HEPARIN SOD INJ 5000 UNIT/ML VIAL SC (08:28)
[2024-08-09 10:08] LABS: Path Review Blood Smear Sent to Pathologist
--- NOTE | 2024-08-09 10:08 | PD.RESDS ---
Planned Discharge Date 08/09/24 DS: Providers Provider Date of admission: 08/08/24 13:57 Primary care physician: Physician No Primary/Family Admitting Provider: Amador Bennett MD Attending Provider on Admission: Amador Bennett MD Consults: 08/08/24 11:21 Consult to Neurology / Tele-Neurology Routine Comment: Consulting Provider: [facility] 08/08/24 13:58 Consult to Neurology / Tele-Neurology Routine Comment: STROKE R/O, NIHHS 0 Consulting Provider: Lane Watters Referral Physical Therapy Routine Comment: Physician Instructions: 08/08/24 13:59 Referral Speech Therapy Routine Comment: 08/08/24 19:37 Consult to Neurology / Tele-Neurology Routine Comment: Consulting Provider: Lane Watters Attending Provider on DC: Amador Bennett MD Discharging Provider: Amador Bennett MD DS: Diagnosis Problem List Completed Was Problem List Reviewed/Reconciled?: Yes Hospital Course Hospital Course Hospital course: 68-year-old female with past medical history of depression, 1 kidney (donated 1), and hypertriglyceridemia was admitted to the hospital on 08/08/2024 for TIA. She came to the ER with complaints of slurred speech. Patient symptoms resolve and was back at baseline even on initial assessment. Stroke alert was called and teleneurology saw the patient initially had an NIHSS score was 0 therefore no need for tPA, and NIHSS in hospital neurology also saw the patient and stated that remained at 0 throughout the hospital stay. Patient's brain MRI, head CT, head/neck CTA were all unremarkable, and echo showed an EF of 65 to 70%. EKG was sinus rhythm. Initial labs were relevant for mild leukocytosis (12.1), and thrombocytosis (725). The patient did not have any symptoms at this time and gave reassurance to the patient with the negative findings on imaging. At the time of discharge patient was stable enough to be discharged back home. Discharge plan: Please follow-up with your primary care physician in 1 week after discharge. You have been started on aspirin 81 mg daily, atorvastatin 40 mg at bedtime, and amlodipine 5mg daily. Concerning your high platelets please follow-up with your primary care physician for further work-up Continue taking all other home medications as prescribed. Please come back to the ER if symptoms persist or worsen. Problem list: #TIA #Dysarthria #Thrombocytosis #Hx of depression #Hx of hypertriglyceridemia Case disclosed with Attending Dr. Bennett and My senior Dr. Patton PGY3. Demario Hastings PGY1 Status at Discharge Overall status at discharge: patient is progressing back to baseline Time Spent with Patient Time attestation: Total time spent providing and/or coordinating discharge services:>35 min Exam Vital Signs Temp Pulse Resp BP Pulse Ox O2 Del Method 98.9 F 75 18 151/88 H 96 Room Air 08/09/24 08:00 08/09/24 08:00 08/09/24 08:00 08/09/24 08:00 08/09/24 08:00 08/09/24 08:00 Narrative Exam General: A/O x3, no acute distress, well-nourished, well-developed Eyes: PERRL, EOMI. Anicteric, vision grossly intact. Ears: No ear pain, no ear discharge, Hearing grossly intact. Nose: No nasal discharge. Mouth/Throat: Moist mucous membranes, no redness, no lesions. Neck: Neck supple, non-tender, no cervical lymphadenopathy. Lungs: Clear MARY to auscultation and percussion, No accessory muscle use. Cardio: Normal S1/S2, regular rhythm, no murmurs, no JVD. Abdomen: Soft, non-tender, no palpable masses, peristalsis present, no guarding or rebound. Extremities: Symmetrical, no significant deformities, no peripheral edema , non-tender, peripheral pulses presents. Skin: No rashes, no lesions, warm to touch. Neuro: No focal neurological deficits. motor and sensory intact Psych: Cooperative, appropriate mood and effect. Discharge Plan Plan Patient Disposition: HOME (Self Care) Disposition Comment: Hospitalist admit Dr Watters to consult Care Plan Goals: Please follow-up with your primary care physician in 1 week after discharge. You have been started on aspirin 81 mg daily, atorvastatin 40 mg at bedtime, and amlodipine 5mg daily. Concerning your high platelets please follow-up with your primary care physician for further work-up Continue taking all other home medications as prescribed. Please come back to the ER if symptoms persist or worsen. Prescriptions/Referrals Prescriptions/Med Rec: New aspirin 81 mg tablet,delayed release (DR/EC) 81 mg PO QDAY 30 Days Qty: 30 0RF atorvastatin 40 mg tablet 40 mg PO HS 30 Days Qty: 30 0RF amlodipine 5 mg tablet 5 mg PO QDAY 30 Days Qty: 30 0RF Continued zolpidem 10 mg tablet 10 mg PO HS Patient Comments: Take 1 tablet by mouth at bedtime as needed albuterol sulfate 90 mcg/actuation HFA aerosol inhaler 2 puff INHALATION Q4H PRN (Reason: shortness of breath or wheezing) Patient Comments: INHALE TWO PUFFS BY MOUTH EVERY FOUR HOURS NEEDED FOR WHEEZING OR SHORTNESS OF BREATH escitalopram oxalate [Lexapro] 5 mg tablet 5 mg PO QDAY Referrals: No Primary/Family,Physician [Primary Care Provider] - Patient/Caregiver Discharge Instructions Other Discharge Activity Instructions:: Please follow-up with your primary care physician in 1 week after discharge. You have been started on aspirin 81 mg daily, atorvastatin 40 mg at bedtime, and amlodipine 5mg daily. Concerning your high platelets please follow-up with your primary care physician for further work-up Continue taking all other home medications as prescribed. Please come back to the ER if symptoms persist or worsen. Education Materials: Discharge Instructions for ..., Risk Factors for Stroke Print Language: Italian Stand Alone Forms: [employer] Award Info., Patient Portal Info Letter Discharge Order Discharge Orders: Discharge (Routine); Ordered 08/09/24 Ordered By: Demario Hastings Quality Discharge Quality Measures VTE prophylaxis Attestestation Attestation I reviewed labs, imaging, EKG, home medications and prior available records. Face to face evaluation was performed by me. I have personally examined the patient and discussed assessment and plan with the IM team. I reviewed the resident note and agree with the plan with exceptions as below. CVA symptoms, resolved Slowed speech Confusion Vertigo Uncontrolled hypertension Leukocytosis Thrombocythemia Symptoms are likely due to TIA. Possibly due to elevated platelet level CT head is negative for acute changes Continue aspirin and atorvastatin Follow-up brain MRI: Negative for CVA Started amlodipine. Monitor BP Trend WBC: Downtrending Monitor platelet level: Still in the 700s. She will need outpatient investigation Time spent is 40 minutes. More than 50% of the time was spent on patient education and coordination of care.
--- NOTE | 2024-08-09 11:37 | PCS.ST ---
Pt interviewed. No formal speech or swallow evaluation is warranted a this time. No return of neuro symptoms Pt is baseline. MRI negative.
[2024-08-09] MEDS: ACETAMINOPHEN 325 MG TABLET 650 MG PO (11:40)
[2024-08-09 11:54] VITALS: BP 144/94; PULSE 67; RESP 18; TEMP 37.1; O2SAT 96
--- NOTE | 2024-08-09 13:09 | PC.SS ---
MEDICAL [employer]PARATUS MODEL [employer]KER conducted bedside contact with the patient to conduct initial assessment and to discuss discharge planning on behalf of the patient.? Patient resides at home.? Patient visiting daughter during current admission.? Patient resides in [place], [place].? Patient does not utilize DME.? Patient does not require the use of home oxygen.? Patient is independent with ADL?s.? Patient?s medical surrogate decision maker is daughter, Mary Wesley .? Plan is for the patient to discharge home.? No discharge needs identified by the patient.? No further intervention required at this time, foster care social worker will be available to address any further concerns.? Next of Kin: Mary Wesley D/C Plan: Home
--- NOTE | 2024-08-09 23:03 | ESPR_ITS ---
Documentation for date of: 08/09/24 Subjective Subjective Interval history: Patient was seen in telemetry today at the bedside. Denies no new symptoms patient did not have any recurrence of similar symptoms after admission. Exam - Neurology Vital Signs Temp Pulse Resp BP Pulse Ox O2 Del Method 98.8 F 67 18 144/94 H 96 Room Air 08/09/24 11:54 08/09/24 11:54 08/09/24 11:54 08/09/24 11:54 08/09/24 11:54 08/09/24 11:54 Narrative Exam GENERAL APPEARANCE: Well hydrated, well-nourished in no acute distress. HEENT: Normocephalic, atraumatic, extraocular movements intact. Pupils: Equal reacting to light and accommodation NECK: Supple, no JVD or bruits. CARDIOVASULAR: Heart: S1, S2 heard, regular without S3-S4 or murmur no rubs or gallops. LUNGS/CHEST: Clear to auscultation bilaterally. No rails, rhonchi, or wheezing. Normal inspection. ABDOMEN: Soft, nontender, with normal bowel sounds. No pulsatile masses. No rebound, rigidity, or guarding. Normal inspection and palpation. EXTREMITIES: Normal inspection and palpation. No edema, clubbing or cyanosis. SKIN: Warm and dry without rashes. Normal inspection. MUSCULOSKELETAL: No cervical, thoracic, lumbar or midline bony tenderness. Normal inspection. NEURO: Alert, awake and oriented x3. Cranial nerves: II through XII grossly intact. Speech and language: Normal with no dysarthria or dysphasia. Motor system: Tone and bulk: Normal: Strength: 5 out of 5 in all 4 extremities; No pronator drift noted. Deep tendon reflexes: 2+ bilaterally symmetrical. Plantar reflex: Downgoing bilaterally. Sensory system: Intact to all modalities of sensation bilaterally. Coordination: Intact to [id number] and gpbp-[id number]-hexy test bilaterally. No ataxia, no dysmetria, or dysdiadochokinesia noted. No intention tremors noted. Gait: Normal. Toe, heel, tandem walk all are normal. Romberg: Negative. No signs of meningeal irritation noted. PSYCHIATRIC: Normal mood and affect. Objective Labs 08/09/24 04:55 08/09/24 04:55 Labs: Laboratory Results - last 24 hr 08/09/24 04:55 WBC 11.7 H RBC 5.03 Hgb 14.9 Hct 44.5 MCV 89 MCH 29.6 MCHC 33.5 RDW Std Deviation 45.6 Plt Count 706 H Neut % (Auto) 53 Lymph % (Auto) 32 Martin % (Auto) 10 Eos % (Auto) 4 Baso % (Auto) 1 Neut # (Auto) 6.2 Lymph # (Auto) 3.7 Martin # (Auto) 1.1 H Eos # (Auto) 0.5 Baso # (Auto) 0.2 Immature Gran # (Auto) 0.07 H Absolute Nucleated RBC 0.00 Immature Gran % 1 H Nucleated RBC % 0 Smear Path Review Sent to Pathologist Sodium 140 Potassium 4.3 Chloride 104 Carbon Dioxide 24.9 Anion Gap 11 BUN 24 H Creatinine 1.1 Estim Creat Clear Calc 44.1 L eGFR 55 L BUN/Creatinine Ratio 22 H Glucose [address] Glu mg/dL 123 Hemoglobin A1c 5.9 Calculated Osmolality 284 Calcium 10.0 Corrected Calcium 10.0 Magnesium 2.2 Total Bilirubin 0.4 AST 14 ALT 20 Alkaline Phosphatase 86 Total Protein 7.0 Albumin 4.4 Globulin 2.6 Albumin/Globulin Ratio 1.7 Triglycerides 328 H Cholesterol 210 H LDL Cholesterol, Calc 112 HDL Cholesterol 32 L Cholesterol/HDL Ratio 6.6 H TSH 1.88 Assessment & Plan Assessment and plan (1) TIA (transient ischemic attack): Status: Resolved Assessment and plan: Reassurance given to the patient regarding the negative workup including brain MRI, echocardiogram and a CT angiogram. (2) Dysarthria: Status: Resolved
== END 2024-08-09 12:28 | disposition home or self-care (01) | DRG 69 ==
LOC: SERX 14:24 → SERHOLD 08-09 06:06 → S2NX 08-09 06:06
PROVIDERS: Nurse Practitioner Primary Care; Student in an Organized Health Care Education/Training Program; Admitting Provider Student in an Organized Health Care Education/Training Program; Emergency Provider Emergency Medicine; Visit Provider Student in an Organized Health Care Education/Training Program
DX: G45.9 Transient cerebral ischemic attack, unspecified (principal); F32.A Depression, unspecified; R47.1 Dysarthria and anarthria; I10 Essential (primary) hypertension; D75.839 Thrombocytosis, unspecified; E78.1 Pure hyperglyceridemia; Z90.49 Acquired absence of other specified parts of digestive tract; Z90.710 Acquired absence of both cervix and uterus; Z87.440 Personal history of urinary (tract) infections; Z87.891 Personal history of nicotine dependence; Z90.5 Acquired absence of kidney; R29.700 NIHSS score 0
CPT/HCPCS: 36415; 70450; 70496; 70498; 70544; 80053; 80061; 80307; 81001; 83036; 83735; 83880; 84443; 84484; 85025; 85610; 85730; 93306; A4649; J1643; J2060; Q9967; A9270

== ENCOUNTER → 2025-05-29 | Outpatient (CLI) | payer MEDICARE, OTHER, SELFPAY ==
[2025-05-29 13:32] LABS: Basophils # (Auto) 0.1 Thou/mm3 (0.0-0.2); Basophils % (Auto) 1 % (0-2.5); Eosinophils # (Auto) 0.2 Thou/mm3 (0.0-0.5); Eosinophils % (Auto) 2 % (0-10); Hematocrit 43.6 % (36.0-46.0); Hemoglobin 14.8 g/dL (12.0-16.0); Immature Granulocytes Auto 0.05 Thou/mm3 (0.00-0.00); Lymphocytes # (Auto) 3.2 Thou/mm3 (1.0-4.8); Lymphocytes % (Auto) 34 % (10-50); Mean Corpuscular HGB Conc 33.9 g/dl (31.0-37.0); Mean Corpuscular Hemoglobin 34.1 pg (25.0-35.0); Mean Corpuscular Volume 101 fL (80-100); Monocytes # (Auto) 0.8 Thou/mm3 (0.0-0.8); Monocytes % (Auto) 9 % (0-12); Neutrophils # (Auto) 5.2 Thou/mm3 (1.8-7.7); Neutrophils % (Auto) 55 % (37-80); Nucleated Red Blood Cell # 0.00 Thou/mm3 (0.00-0.00); Nucleated Red Blood Cell % 0 /100 WBC (0); Platelet Count 435 Thou/mm3 (140-440); RDW Standard Deviation 62.1 fL (36.4-46.3); Red Blood Count 4.34 Miln/mm3 (4.00-5.20); White Blood Count 9.5 Thou/mm3 (3.6-11.0)
== END | disposition home or self-care (01) ==
PROVIDERS: Referring Provider Physician Assistant; Visit Provider Physician Assistant
DX: D47.3 Essential (hemorrhagic) thrombocythemia (principal)
CPT/HCPCS: 36415; 85025